=== PATIENT | female | born 1960 | race Caucasian/White ===

== ENCOUNTER 2020-12-27 05:27 | Day surgery (SDC) | payer MEDICARE, OTHER ==
[~2020-12-27] VITALS: Ht 168 cm; Wt 115.0 kg
[~2020-12-27 05:27] MED LIST: ACETAMINOPHEN500 M1 PO; ANTIVERT25 MG PO; ATORVASTATIN CA20 MG PO; CLARITIN10 M2 PO; COLACE100 MG PO; KEFLEX250 MG PO; LOPRESSOR25 MG PO; LOSARTAN POTASS50 MG PO; METFORMIN HCL500 MG PO; MOBIC7.5 MG PO; NORVASC5 MG PO; OXY-IR 5MG5 MG PO; PRILOSEC20 MG PO; SINGULAIR10 MG PO; TRAZODONE 100M100 MG PO; TRIAMCINOLONE 080 GM TOP; VITAMIN D PO
[2020-12-28 06:31] LABS: BASOPHIL 0.3 % (0-2); EOSINOPHIL 0 % (0-5); HCT 29.1 % (37.0-47.0); HGB 9.5 g/dl (12.5-16.0); LYMPHOCYTE 12.4 % (15-48); MCH 30.4 pg (25.0-31.0); MCHC 32.6 g/dL (32.0-36.0); MCV 93.3 fL (78.0-100.0); MONOCYTE 10.7 % (0-12); MPV 10.1 fL (6.0-9.5); NEUTROPHIL 76.4 % (41-80); NRBC 0; PLT 171 K/uL (150-400); RBC 3.12 M/uL (4.20-5.40); RDW 13.1 % (11.5-14.0); WBC 9.8 K/uL (4.0-10.5)
[2020-12-28 06:53] LABS: BUN/CREAT RATIO (CALC) 17.2 RATIO; CREATININE 0.93 mg/dL (0.51-0.95)
[2020-12-28] MEDS ORDERED: CHILDREN'S ASPI81 MG PO (09:03)
[2020-12-28] MEDS ORDERED: FEOSOL325 MG PO (09:03)
[2020-12-28] MEDS ORDERED: OXYCODONE-ACET1 EAC1 PO (09:03)
--- NOTE | 2020-12-28 11:10 | NUR ---
PT TO D/C HOME ON 12/28. PT REQUESTED [facility] FOR PT. [facility] DELIVERED A [facility]. PT. SIGNED CHOICE FORM.
== END 2020-12-28 12:20 | disposition home health service (06) ==
LOC: FMS 05:27 → FAS 05:27 → FMS 07:49 → FAS 12-28 12:20
PROVIDERS: Orthopaedic Surgery
DX: T84.033A Mechanical loosening of internal left knee prosthetic joint, initial encounter (principal); Z79.4 Long term (current) use of insulin; Z88.5 Allergy status to narcotic agent; Z96.651 Presence of right artificial knee joint; E11.9 Type 2 diabetes mellitus without complications; E66.01 Morbid (severe) obesity due to excess calories; K21.9 Gastro-esophageal reflux disease without esophagitis; Z68.41 Body mass index [BMI] 40.0-44.9, adult; I10 Essential (primary) hypertension; G47.33 Obstructive sleep apnea (adult) (pediatric); R94.31 Abnormal electrocardiogram [ECG] [EKG]
CPT/HCPCS: 36415; 73560; 80048; 82962; 85025; 86850; 86900; 86901; 94010; 94760; 94762; 97162; 97166; 97530-GP; 97535; J0171; J0697; J1100; J1170; J1200; J1885; J2250; J2405; J2704; J2795; J3010; J7120

== ENCOUNTER 2021-09-19 06:11 | Day surgery (SDC) | payer MEDICARE, OTHER ==
[~2021-09-19] VITALS: Ht 168 cm; Wt 117.0 kg
[~2021-09-19 06:11] MED LIST changes: +ASPIRIN325 MG PO; +ATORVASTATIN CA40 MG PO; +CHILDREN'S ASPI81 MG PO; +FEOSOL325 MG PO; +LOVAZA1 GM PO; +MELOXICAM15 MG PO; +OXYCODONE-ACET1 EAC1 PO; +VITAMIN D21250 MCG PO
[2021-09-19] MEDS ORDERED: CHILDREN'S ASPI81 MG PO (13:05)
[2021-09-20 07:00] LABS: BASOPHIL 0.4 % (0-2); EOSINOPHIL 0 % (0-5); HCT 31.8 % (37.0-47.0); HGB 10.5 g/dl (12.5-16.0); LYMPHOCYTE 13.3 % (15-48); MCH 30.1 pg (25.0-31.0); MCV 91.1 fL (78.0-100.0); MONOCYTE 9.4 % (0-12); MPV 9.5 fL (6.0-9.5); NEUTROPHIL 76.5 % (41-80); NRBC 0; PLT 162 K/uL (150-400); RBC 3.49 M/uL (4.20-5.40); RDW 13.2 % (11.5-14.0)
[2021-09-20 07:17] LABS: BUN/CREAT RATIO (CALC) 18.8 RATIO; CREATININE 0.85 mg/dL (0.51-0.95); POTASSIUM 3.6 mmol/L (3.5-5.1)
[2021-09-20] MEDS ORDERED: FEOSOL325 MG PO (08:41)
[2021-09-20] MEDS ORDERED: ONDANSETRON HCL4 MG PO (08:41)
== END 2021-09-20 14:45 | disposition home health service (06) ==
LOC: FMS 06:11 → FAS 06:11 → EDSTATUS 09:00 → FAS 09:00 → FMS 10:00 → FAS 09-20 14:45
PROVIDERS: Orthopaedic Surgery
DX: T84.032A Mechanical loosening of internal right knee prosthetic joint, initial encounter (principal); G89.29 Other chronic pain; E11.9 Type 2 diabetes mellitus without complications; I10 Essential (primary) hypertension; E78.5 Hyperlipidemia, unspecified; K21.9 Gastro-esophageal reflux disease without esophagitis; Z88.5 Allergy status to narcotic agent; Z91.040 Latex allergy status; Z79.82 Long term (current) use of aspirin; Z79.84 Long term (current) use of oral hypoglycemic drugs; Z79.899 Other long term (current) drug therapy
CPT/HCPCS: 36415; 73560; 80048; 85025; 86850; 86900; 86901; 94010; 94760; 97110; 97116; 97161; 97165; 97535; C1713; C1776; J0171; J0697; J1170; J1200; J1885; J2250; J2405; J2704; J2795; J3010; J7120

== ENCOUNTER 2021-10-03 12:36 | Emergency (ER) | payer MEDICARE, OTHER ==
[~2021-10-03 12:36] MED LIST changes: +ONDANSETRON HCL4 MG PO
== END 2021-10-03 16:32 | disposition home or self-care (01) ==
LOC: FER 12:36
DX: L76.22 Postprocedural hemorrhage of skin and subcutaneous tissue following other procedure (principal); E11.9 Type 2 diabetes mellitus without complications; I10 Essential (primary) hypertension; Z88.5 Allergy status to narcotic agent; Z88.6 Allergy status to analgesic agent
CPT/HCPCS: 99283